=== PATIENT | male | born 1955 | race Hispanic/Latino ===

== ENCOUNTER 2018-02-28 07:56 | Emergency (ER) | payer MEDICARE ==
[2018-02-28 08:12] VITALS: RESP 18; O2SAT 97
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
[2018-02-28 10:52] VITALS: BP 128/76; PULSE 60; TEMP 98.1
== END 2018-02-28 10:54 | disposition home or self-care (01) ==
LOC: ED 07:56
DX: Z03.89 Encounter for observation for other suspected diseases and conditions ruled out (principal); X38.XXXA Flood, initial encounter